=== PATIENT | male | born 1955 | race Caucasian/White ===

== ENCOUNTER 2022-05-15 22:04 | Emergency (ER) | payer MEDICAID, SELFPAY ==
--- NOTE | 2022-05-15 22:08 | ECG_ITS ---
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 Measurements Intervals [place] Rate: 81 P: 74 [place]: 150 QRS: 24 QRSD: 106 T: 57 QT: 379 QTc: 441 Interpretive Statements SINUS RHYTHM No previous ECG available for comparison Electronically Signed On 05-16-2022 11:57:04 CDT by Alex Eden M.D. [email or web address].[employer]/store/NU/[id number] f
--- NOTE | 2022-05-15 22:08 | ED_ITS ---
HPI - Chest Pain General: Chief Complaint: Chest Pain Stated Complaint: cp Time Seen by Provider: 05/15/22 22:07 Source: patient and EMS Mode of arrival: EMS Limitations: no limitations History of Present Illness: 66-year-old male who states that he started having high blood pressure today with clinic today for because he is having some chest pain as well. States that it resolved he states he started having chest pain again an hour ago called EMS he states he is pain-free currently he did get nitro and aspirin in route. States been a sharp pain in the center of his chest denies any fevers denies any shortness of breath he denies any exertional component. Associated symptoms: Deny abdominal pain, dyspnea, fever(s), nausea or vomiting Review of Systems Const: Denies: fever(s), chills, body aches or change in appetite Eyes: Denies: blurry vision or eye discomfort ENMT: Denies: throat pain or dental pain Card: Reports: chest pain Resp: Denies: dyspnea GI: Denies: abdominal pain, nausea, vomiting or diarrhea : Denies: dysuria Musc: Denies: neck pain or back pain Skin/Breast: Denies: rash Neuro: Denies: headache(s) Psych: Denies: depression Gordon/Lymph: Denies: easy bruising All/Imm: Denies: urticaria PFSH ED PFSH: Medical History (Updated 05/16/22 @ 00:55 by Ottoniel Lorenzo MD) Hypertension Social History (Updated 05/15/22 @ 22:09 by Ottoniel Lorenzo MD) Substance/Drug Use: never Physical Exam Const: COMMON NORMALS: no acute distress, patient oriented x3 and healthy appearing HENMT: COMMON NORMALS: normocephalic and atraumatic HEAD & SCALP: normocep halic and atraumatic Eye: COMMON NORMALS: Equal, round and reactive pupils present and EOMs intact bilaterally PUPIL: Yes Equal, round and reactive pupils present Neck/C-Spine: COMMON NORMALS: full ROM and supple Chest: COMMONS NORMALS: normal inspection of the chest and normal palpation of entire chest wall Resp: COMMON NORMALS: normal respiratory effort, No retractions, No use of accessory muscles and clear to auscultation bilaterally AUSCULTATION: clear to auscultation bilaterally Cardio: COMMON NORMALS: regular rate, regular rhythm and No murmurs present (Cardio) RATE: regular rate RHYTHM: regular rhythm GI: COMMON NORMALS: Normal to inspection, nondistended, normoactive bowel sounds present, Soft to palpation, non-tender and no masses PALPATION: Yes Soft to palpation Extremity: COMMON NORMALS: normal to inspection and full ROM Neuro: COMMON NORMALS: patient oriented x3, moves all extremities and no focal motor deficits Psych: COMMON NORMALS: mental status grossly normal, Normal thought process present and cooperative THOUGHT PROCESS: Normal thought process present Skin: COMMON NORMALS: no rashes or lesions noted and no wounds GENERAL SKIN EXAM: no rashes or lesions noted Course Vital Signs: Vital signs: Vital Signs Temperature 98.4 F 05/15/22 22:13 Pulse Rate 86 05/15/22 22:13 Respiratory Rate 24 H 05/15/22 22:13 Blood Pressure 164/88 05/15/22 22:13 Pulse Oximetry 96 05/15/22 22:13 MDM - Chest Pain Medical Decision Making Patient presents with hypertension along with chest pain his pain here has been resolved his blood work here is normal with normal troponins he has no signs of acute coronary syndrome he is stable for discharge we will start him on blood pressure medicine get him cardiac follow-up he is to return if worsening he understands agrees to plan. Lab Data : 05/15/22 22:40 05/15/22 22:40 Radiology Impressions Chest X-Ray 05/15/22 22:08 IMPRESSION: No acute findings. Laboratory Results WBC 9.5 10^3/uL (4.0-10.0) 05/15/22 22:40 RBC 4.33 10^6/uL (4.1-5.3) 05/15/22 22:40 Hgb 13.6 g/dL (11.7-16.6) 05/15/22 22:40 Hct 40.9 % (42.0-52.0) L 05/15/22 22:40 MCV 94.5 fl (80-94) H 05/15/22 22:40 MCH 31.4 pg (28.0-34.0) 05/15/22 22:40 MCHC 33.3 g/dL (30.0-36.0) 05/15/22 22:40 RDW 11.3 % (12.1-15.1) L 05/15/22 22:40 Plt Count 238 10^3/cmm (130-400) 05/15/22 22:40 MPV 9.9 fL (7.4-10.4) 05/15/22 22:40 Neut % (Auto) 50.4 % 05/15/22 22:40 Lymph % (Auto) 32.0 % 05/15/22 22:40 [place] % (Auto) 10.4 % 05/15/22 22:40 Eos % (Auto) 5.8 % 05/15/22 22:40 Baso % (Auto) 1.0 % 05/15/22 22:40 Neut # (Auto) 4.77 10^3/uL (1.8-7.7) 05/15/22 22:40 Lymph # (Auto) 3.0 10^3/uL (0.8-4.8) 05/15/22 22:40 [place] # (Auto) 1.0 10^3/uL (0.2-0.9) H 05/15/22 22:40 Eos # (Auto) 0.6 10^3/uL (0.0-0.8) 05/15/22 22:40 Baso # (Auto) 0.1 10^3/uL (0.0-0.1) 05/15/22 22:40 Nucleated RBC % (auto) 0 % 05/15/22 22:40 Nucleated RBCs # 0.0 /100WBC 05/15/22 22:40 Sodium 138 mmol/L (136-145) 05/15/22 22:40 Potassium 3.6 mmol/L (3.5-5.1) 05/15/22 22:40 Chloride 102 mmol/L (98-107) 05/15/22 22:40 Carbon Dioxide 26 mmol/L (22-29) 05/15/22 22:40 Anion Gap 13.6 (5-19) 05/15/22 22:40 BUN 17 mg/dL (8-23) 05/15/22 22:40 Creatinine 1.0 mg/dL (0.7-1.2) 05/15/22 22:40 GFR Calculation 75.2 mL/min (90-130) L 05/15/22 22:40 Glucose 95 mg/dL (65-115) 05/15/22 22:40 Calculated Osmolality 287 mOsm/kg (285-295) 05/15/22 22:40 Calcium 8.8 mg/dL (8.5-10.5) 05/15/22 22:40 Total Bilirubin 0.4 mg/dL (0.15-1.2) 05/15/22 22:40 AST 23 U/L (0-40) 05/15/22 22:40 ALT 32 U/L (0-41) 05/15/22 22:40 Alkaline Phosphatase 64 IU/L (40-130) 05/15/22 22:40 Troponin T Baseline 10 ng/L (0-15) 05/15/22 22:40 Troponin T 120 Minute 10.20 ng/L (0-15) 05/16/22 00:15 Delta Troponin T 0.20 ABS# (0-10) 05/16/22 00:15 Total Protein 6.4 g/dL (6.6-8.7) L 05/15/22 22:40 Albumin 3.9 g/dL (3.5-5.2) 05/15/22 22:40 Globulin 2.5 g/dL (1.3-4.6) 05/15/22 22:40 EKG Data EKG 1: I personally reviewed and interpreted this EKG as follows: EKG interpretation date: 05/15/22 EKG interpretation time: 22:13 Interpretation: nsr hr [address] or t wave abnormalities qrs 106 qtc 416 EKG 2: I personally reviewed and interpreted this EKG as follows: EKG interpretation date: 05/16/22 EKG interpretation time: 00:12 Interpretation: nsr hr [address] or t wave abnormalities qrs 97 qtc 427 Discharge Plan Discharge Patient Disposition: Home Clinical Impression: Chest pain, Hypertension Prescriptions: New amlodipine 5 mg tablet 5 mg PO DAILY Qty: 30 0RF Discharge Orders: Discharge ED (Routine); Ordered 05/16/22 Ordered By: Ottoniel Lorenzo Referrals: Alex Eden MD [Physician] - 1-3 days Discharge Diet: Advance as tolerated Discharge Activity: Resume usual activity Patient Instructions: Chest Pain (ED) Coding Level of Care Code ED Embedded Processor for Chg Fwd Exam Comprehensive
--- NOTE | 2022-05-15 22:08 | XRR_ITS ---
PROCEDURE INFORMATION: Exam: XR Chest Exam date and time: 05/15/2022 10:13 PM Age: 66 years old Clinical indication: Angina; Additional info: Cp TECHNIQUE: Imaging protocol: Radiologic exam of the chest. Views: 1 view. COMPARISON: No relevant prior studies available. FINDINGS: Lungs: No consolidation. Pleural spaces: No pleural effusion. No pneumothorax. Heart/Mediastinum: No cardiomegaly. Bones/joints: Visualized osseous structures are intact. XR/XR chest 1V portable [id number] IMPRESSION: No acute findings.
[2022-05-15 22:13] VITALS: BP 164/88; PULSE 86; RESP 24; TEMP 36.9; O2SAT 96; BMI 35.6
[2022-05-15 22:53] LABS: Basophils # 0.1 10^3/uL (0.0-0.1); Eosinophils # 0.6 10^3/uL (0.0-0.8); Eosinophils % 5.8 %; Hematocrit 40.9 % (42.0-52.0); Hemoglobin 13.6 g/dL (11.7-16.6); Mean Corpuscular HGB Conc 33.3 g/dL (30.0-36.0); Mean Corpuscular Hemoglobin 31.4 pg (28.0-34.0); Mean Corpuscular Volume 94.5 fl (80-94); Mean Platelet Volume 9.9 fL (7.4-10.4); Monocytes % 10.4 %; Neutrophils # 4.77 10^3/uL (1.8-7.7); Neutrophils % 50.4 %; Nucleated Red Blood Cells % 0 %; Platelet Count 238 10^3/cmm (130-400); Red Blood Count 4.33 10^6/uL (4.1-5.3); Red Cell Distribution Width 11.3 % (12.1-15.1); White Blood Count 9.5 10^3/uL (4.0-10.0)
[2022-05-15 23:25] LABS: Alanine Aminotransferase 32 U/L (0-41); Albumin Level 3.9 g/dL (3.5-5.2); Alkaline Phosphatase 64 IU/L (40-130); Anion Gap 13.6 (5-19); Aspartate Amino Transferase 23 U/L (0-40); Blood Urea Nitrogen 17 mg/dL (8-23); Calcium 8.8 mg/dL (8.5-10.5); Carbon Dioxide 26 mmol/L (22-29); Chloride 102 mmol/L (98-107); Globulin 2.5 g/dL (1.3-4.6); Glomerular Filtration Rate 75.2 mL/min (90-130); Glucose 95 mg/dL (65-115); Osmolality Calculated 287 mOsm/kg (285-295); Potassium 3.6 mmol/L (3.5-5.1); Sodium 138 mmol/L (136-145); Total Bilirubin 0.4 mg/dL (0.15-1.2); Total Protein 6.4 g/dL (6.6-8.7); Troponin(5th) Baseline 10 ng/L (0-15)
[2022-05-15 23:49] VITALS: PULSE 80; RESP 17; O2SAT 80
--- NOTE | 2022-05-16 00:08 | ECG_ITS ---
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 Measurements Intervals [place] Rate: 67 P: 78 [place]: 161 QRS: 48 QRSD: 97 T: 51 QT: 411 QTc: 436 Interpretive Statements SINUS RHYTHM Compared to ECG 05/15/2022 22:13:38 No significant changes Electronically Signed On 05-16-2022 12:00:37 CDT by Alex Eden M.D. [email or web address].[employer]/store/OM/[id number]
[2022-05-16 01:22] VITALS: BP 115/77; PULSE 76; RESP 17; O2SAT 95
--- NOTE | 2022-05-16 15:51 | DCPLANNER ---
Addendum entered by Jelena Clark 07/09/22 07:59: This appointment was cancelled Addendum entered by Jelena Clark 05/19/22 12:50: Patient has a follow up appointment scheduled for Wednesday, July 08, 2022 at 1:[address] Orellana at [facility]. Clinic will call patient with appointment information. Original Note: communication and outreach manager had message to schedule a follow up appointment for patient with cardiology. communication and outreach manager sent patients information to the front office staff at [facility]. Patients information will be printed and reviewed. Clinic will call patient with appointment information.
== END 2022-05-16 01:33 | disposition home or self-care (01) ==
PROVIDERS: Emergency Provider Emergency Medicine
DX: R07.9 Chest pain, unspecified (principal); I10 Essential (primary) hypertension
CPT/HCPCS: 71045; 80053; 84484; 85025; 93005; 96374; 96375; 99285

== ENCOUNTER 2025-02-12 08:03 | Emergency (ER) | payer MEDICAID, SELFPAY ==
[2025-02-12 08:12] VITALS: BP 166/101; PULSE 75; RESP 16; TEMP 36.8; O2SAT 96; BMI 35.9
--- NOTE | 2025-02-12 08:16 | CT_ITS ---
WS: [id number] CT ABDOMEN AND PELVIS NONCONTRAST HISTORY: Abdominal pain, RIGHT lower quadrant pain with shortness of breath. TECHNIQUE: Imaging performed through the abdomen and pelvis. Coronal and sagittal reformats are submitted. All CT scans at [facility] use at least one of these dose optimization techniques: automated exposure control; mA and/or kV adjustment per patient size (includes targeted exams where dose is matched to clinical indication); or iterative reconstruction. DLP: 1071.20 mGy.cm COMPARISON: None available. Lower thorax: Benign granuloma LEFT lower lobe. Heart size is normal. Small hiatal hernia. Liver: Liver is just slightly enlarged with diffuse low-attenuation from hepatic steatosis. Gallbladder: Normal gallbladder. No pericholecystic fluid or cholelithiasis. No gallbladder wall thickening. Pancreas: Normal size and attenuation. Normal pancreatic duct. No pancreatitis or mass. Spleen: Normal. Adrenal glands: Normal. No mass. Right kidney: Normal size kidney with no obstruction. Several nonobstructing renal calcifications. Normal ureter. Left kidney: Normal size kidney with no obstruction. Nonobstructing calcifications. Normal ureter. Aorta: Moderate atherosclerotic plaque. No free fluid, intraperitoneal air or significant lymphadenopathy. GI tract: Nondistended stomach. No small bowel obstruction. Normal appendix. No colon obstruction. Abdominal wall: Very tiny umbilical hernia contains fat only. Pelvis: Negative urinary bladder. Prostate gland calcifications. No ascites or adenopathy. Osseous structures: Unremarkable. CT/CT abdomen pelvis wo con [id number] IMPRESSION: 1. No renal obstruction. 2. Nonobstructing bilateral renal calculi. 3. Normal appendix. 4. No ascites or free air. 5. Moderate atherosclerosis aorta. 6. Diffuse hepatic steatosis.
--- NOTE | 2025-02-12 08:38 | ED_ITS ---
HPI - Abdominal Pain 2 General: Chief Complaint: Abdominal Pain Stated Complaint: abd pain Time Seen by Provider: 02/12/25 08:06 History of Present Illness: Six 9-year-old male presents emergency room with complaint of right lower quadrant abdominal pain no fever sweats chills no nausea vomiting or diarrhea he did not notice anything that exacerbates or relieves. No dysuria urgency or frequency or hematuria. Associated Symptoms: Denies chills, dysuria and fever(s) Related Data Home Medications ?Medication ?Instructions ?Recorded ?Confirmed No Known Home Medications 02/12/2501/17 Allergies Allergy/AdvReac Type Severity Reaction Status Date / Time Penicillins Allergy Unknown Verified 02/12/25 08:15 Review of Systems 2 Const: Denies: fever(s) or chills Card: Denies: chest pain Resp: Denies: dyspnea GI: Reports: abdominal pain : Denies: dysuria, urinary frequency or urinary urgency Musc: Denies: neck pain or back pain Skin/Breast: Denies: rash PFSH ED 2 PFSH: Medical History Hypertension Social History Substance/Drug Use: never Physical Exam 2 Const: GENERAL APPEARANCE: cooperative ORIENTATION/CONSCIOUSNESS: Yes awake, Yes oriented to person, Yes oriented to place and Yes oriented to time HENMT: COMMON NORMALS: normocephalic, atraumatic and hearing grossly normal bilaterally HEAD & SCALP: normocephalic and atraumatic Resp: COMMON NORMALS: normal respiratory effort, No retractions, No use of accessory muscles and clear to auscultation bilaterally AUSCULTATION: clear to auscultation bilaterally Cardio: COMMON NORMALS: regular rate, regular rhythm and No murmurs present (Cardio) RATE: regular rate RHYTHM: regular rhythm GI: COMMON NORMALS: Soft to palpation and No hepatosplenomegaly present A USCULTATION: Yes normoactive bowel sounds PALPATION: Yes Soft to palpation, No Tenderness to palpation present (GI), No Guarding due to palpation present (GI) and Yes No hepatosplenomegaly present Extremity: COMMON NORMALS: normal to inspection, capillary refill normal, no clubbing, cyanosis or edema, no calf tenderness and no pedal edema OTHER: Femoral pulses equal bilaterally Neuro: SENSORIUM/ORIENTATION: Yes oriented to person, Yes oriented to place and Yes oriented to time Skin: COMMON NORMALS: no rashes or lesions noted GENERAL SKIN EXAM: no rashes or lesions noted OTHER: No sign of zoster in the area of discomfort Course 2 Vital Signs: Vital signs: Vital Signs Temperature 98.3 F 02/12/25 08:12 Pulse Rate 69 02/12/25 10:29 Respiratory Rate 16 02/12/25 09:18 Blood Pressure 191/98 02/12/25 10:29 Pulse Oximetry 97 02/12/25 10:29 Oxygen Delivery Me thod Room Air 02/12/25 09:18 MDM - Abdominal Pain Medical Decision Making CT of the abdomen does not show any acute abnormalities. On exam there was no zoster no abdominal wall hernia femoral pulses are equal bilaterally. CT does not show any nephrolithiasis or acute appendicitis. Discharged home close ago diet advance as tolerated Differential Diagnosis Likely abdominal pain, acute appendicitis, calculus of kidney, constipation, diverticulitis and small bowel obstruction (Hernia zoster dissecting aneurysm) Medical Records I reviewed the patient's medical records. Lab Data I reviewed the patient's lab results. 02/12/25 08:38 02/12/25 08:38 Labs/Radiology: Radiology Impressions Abdomen/Pelvis CT 02/12/25 08:16 IMPRESSION: 1. No renal obstruction. 2. Nonobstructing bilateral renal calculi. 3. Normal appendix. 4. No ascites or free air. 5. Moderate atherosclerosis aorta. 6. Diffuse hepatic steatosis. Laboratory Results WBC 8.19 10^3/uL (3.29-11.43) 02/12/25 08:38 RBC 4.70 10^6/uL (3.85-5.65) 02/12/25 08:38 Hgb 14.70 g/dL (11.27-16.99) 02/12/25 08:38 Hct 43.8 % (37-53) 02/12/25 08:38 MCV 93.2 fl (82-101) 02/12/25 08:38 MCH 31.3 pg (27-33) 02/12/25 08:38 MCHC 33.6 g/dL (30-55) 02/12/25 08:38 RDW 11.7 % (12.1-15.1) L 02/12/25 08:38 Plt Count 235 10^3/cmm (157-399) 02/12/25 08:38 MPV 9.1 fL (7.4-10.4) 02/12/25 08:38 Neut % (Auto) 61.3 % 02/12/25 08:38 Lymph % (Auto) 22.6 % 02/12/25 08:38 [place] % (Auto) 10.1 % 02/12/25 08:38 Eos % (Auto) 4.4 % 02/12/25 08:38 Baso % (Auto) 0.9 % 02/12/25 08:38 Neut # (Auto) 5.02 10^3/uL (1.8-7.7) 02/12/25 08:38 Lymph # (Auto) 1.9 10^3/uL (0.8-4.8) 02/12/25 08:38 [place] # (Auto) 0.8 10^3/uL (0.2-0.9) 02/12/25 08:38 Eos # (Auto) 0.4 10^3/uL (0.0-0.8) 02/12/25 08:38 Baso # (Auto) 0.1 10^3/uL (0.0-0.1) 02/12/25 08:38 Nucleated RBC % (auto) 0 % 02/12/25 08:38 Nucleated RBCs # 0.0 /100WBC 02/12/25 08:38 Sodium 139 mmol/L (136-145) 02/12/25 08:38 Potassium 4.2 mmol/L (3.5-5.1) 02/12/25 08:38 Chloride 104 mmol/L (98-107) 02/12/25 08:38 Carbon Dioxide 23 mmol/L (22-29) 02/12/25 08:38 Anion Gap 16.2 (5-19) 02/12/25 08:38 BUN 13 mg/dL (8-23) 02/12/25 08:38 Creatinine 1.0 mg/dL (0.7-1.2) 02/12/25 08:38 GFR Calculation 74.5 mL/min (90-130) L 02/12/25 08:38 Glucose 123 mg/dL (65-115) H 02/12/25 08:38 Calculated Osmolality 289 mOsm/kg (285-295) 02/12/25 08:38 Calcium 9.2 mg/dL (8.5-10.5) 02/12/25 08:38 Total Bilirubin 0.3 mg/dL (0.15-1.2) 02/12/25 08:38 AST 36 U/L (0-40) 02/12/25 08:38 ALT 58 U/L (0-41) H 02/12/25 08:38 Alkaline Phosphatase 73 U/L (40-130) 02/12/25 08:38 Total Protein 7.4 g/dL (6.6-8.7) 02/12/25 08:38 Albumin 4.4 g/dL (3.5-5.2) 02/12/25 08:38 Globulin 3.0 g/dL (1.3-4.6) 02/12/25 08:38 Urine Color Yellow (Yellow) 02/12/25 09:08 Urine Appearance Clear (CLEAR) 02/12/25 09:08 Urine pH 5.0 (5-7) 02/12/25 09:08 Ur Specific [place] 1.019 (1.005-1.030) 02/12/25 09:08 Urine Protein Negative (Negative) 02/12/25 09:08 Urine Glucose (UA) Negative (Normal) 02/12/25 09:08 Urine Ketones Negative (Negative) 02/12/25 09:08 Urine Blood Negative (Negative) 02/12/25 09:08 Urine Nitrate Negative (Negative) 02/12/25 09:08 Urine Bilirubin Negative (Negative) 02/12/25 09:08 Urine Urobilinogen 1.0 mg/dL (Negative) 02/12/25 09:08 Ur Leukocyte Esterase Trace (Negative) A 02/12/25 09:08 Urine RBC 0-2 /hpf (0-2) 02/12/25 09:08 Urine WBC 0-5 /hpf (0-5) 02/12/25 09:08 Ur Squamous Epith Cells 0-5 /hpf (0-5) 02/12/25 09:08 Amorphous Sediment Not Reportable 02/12/25 09:08 Urine Bacteria None seen /hpf (NONE) 02/12/25 09:08 Hyaline Casts 0.81 /lpf 02/12/25 09:08 All radiology interpretation(s) finalized by discharge Discharge Plan Discharge Patient Disposition: Home Clinical Impression: Abdominal pain Condition: Stable Prescriptions: No Action No Known Home Medications Discharge Orders: Discharge ED (Routine); Ordered 02/12/25 Ordered By: Jona Staley Discharge Diet: Clear Liquid Discharge Activity: Resume usual activity Patient Instructions: Abdominal Pain (ED), Opioid Safety, Pain Management Activity Restrictions/Additional Instructions: Thank you for choosing [facility] for your healthcare needs today. It is very important that you follow up as instructed or that you return to the Emergency Department should you have concerns or if your condition changes or worsens in any way. You are seen emergency room with a complaint of abdominal pain. CT of your abdomen did not show any acute pathology your white count was normal your liver functions did not show significant abnormality. Your urine was normal and there is no sign of infection or kidney stone. Recommend clear liquid diet and advance as tolerated after 24 hours Print Language: New Zealander Coding Level of Care Code ED Filling Mixer for Ren Ang
[2025-02-12 08:42] LABS: Basophils # 0.1 10^3/uL (0.0-0.1); Basophils % 0.9 %; Eosinophils # 0.4 10^3/uL (0.0-0.8); Eosinophils % 4.4 %; Hematocrit 43.8 % (37-53); Lymphocytes # 1.9 10^3/uL (0.8-4.8); Lymphocytes % 22.6 %; Mean Corpuscular HGB Conc 33.6 g/dL (30-55); Mean Corpuscular Hemoglobin 31.3 pg (27-33); Mean Corpuscular Volume 93.2 fl (82-101); Mean Platelet Volume 9.1 fL (7.4-10.4); Monocytes # 0.8 10^3/uL (0.2-0.9); Monocytes % 10.1 %; Neutrophils # 5.02 10^3/uL (1.8-7.7); Neutrophils % 61.3 %; Nucleated Red Blood Cells % 0 %; Platelet Count 235 10^3/cmm (157-399); Red Cell Distribution Width 11.7 % (12.1-15.1); White Blood Count 8.19 10^3/uL (3.29-11.43)
[2025-02-12 09:09] LABS: Alanine Aminotransferase 58 U/L (0-41); Albumin Level 4.4 g/dL (3.5-5.2); Alkaline Phosphatase 73 U/L (40-130); Anion Gap 16.2 (5-19); Aspartate Amino Transferase 36 U/L (0-40); Blood Urea Nitrogen 13 mg/dL (8-23); Calcium 9.2 mg/dL (8.5-10.5); Carbon Dioxide 23 mmol/L (22-29); Chloride 104 mmol/L (98-107); Creatinine Clr Calc Pharmacy 85.0239; Glomerular Filtration Rate 74.5 mL/min (90-130); Glucose 123 mg/dL (65-115); Osmolality Calculated 289 mOsm/kg (285-295); Potassium 4.2 mmol/L (3.5-5.1); Sodium 139 mmol/L (136-145); Total Bilirubin 0.3 mg/dL (0.15-1.2); Total Protein 7.4 g/dL (6.6-8.7)
[2025-02-12 09:18] VITALS: PULSE 80; RESP 16; O2SAT 96
[2025-02-12 09:30] LABS: Bilirubin Urine Negative (Negative); Blood Urine Negative (Negative); Glucose Urine UA Negative (Normal); Ketones Urine Negative (Negative); Leukocyte Esterase Urine Trace (Negative); Nitrate Urine Negative (Negative); Protein Urine Negative (Negative); Specific Gravity, Urine 1.019 (1.005-1.030); Urine Appearance Clear (CLEAR); Urine Color Yellow (Yellow)
[2025-02-12 09:35] LABS: Add Urine Microscopic? YES; Bacteria Urine None Seen /hpf; Hyaline Casts Urine 0.81 /lpf; RBC Urine 0-2 /hpf (0-2); Squamous Epithelial Cell Urine 0-5 /hpf (0-5); WBC Urine 0-5 /hpf (0-5)
[2025-02-12 10:29] VITALS: BP 191/98; PULSE 69; O2SAT 97
== END 2025-02-12 10:31 | disposition home or self-care (01) ==
PROVIDERS: Emergency Provider Family Medicine
DX: R10.31 Right lower quadrant pain (principal); I10 Essential (primary) hypertension
CPT/HCPCS: 36415; 74176; 80053; 81001; 85025; 99284